=== PATIENT | female | born 1985 | race Two or more races ===

== ENCOUNTER 2017-10-12 11:00 | Observation (INO) | payer OTHER ==
[2017-10-12] MEDS ORDERED: HYDROmorphONE/DILAUDID 2 MG/ML INJ IVP ONE (11:34)
[2017-10-12] MEDS ORDERED: NS 1,000 ML IV ONE (11:34)
[2017-10-12] MEDS ORDERED: ONDANSETRON 4 MG/2 ML VIAL IVP ONE (11:34)
--- NOTE | 2017-10-12 11:36 | EDPHY ---
H & P Stated Complaint: ongoing left arm numbnesss and abdo pain radiating to lower back. Time Seen by Provider: 10/12/17 11:27 HPI/ROS: CHIEF COMPLAINT: Abdominal pain HISTORY OF PRESENT ILLNESS: Patient is a 32-year-old obese female who comes to the emergency department complaining of right side pain radiating to her back. She states that she has had problems with her gallbladder before but has not had surgery. She also has a history of chronic back pain. She vomited once today. Pain began last night. No fever. No difficulty breathing. No chest pain. She also complains of intermittent numbness to various parts for body. Sometimes to her left arm sometimes to her right leg and it seems to migrate around and be intermittent. REVIEW OF SYSTEMS: Constitutional: denies: chills, fever, recent illness, recent injury EENTM: denies: blurred vision, double vision, nose congestion Respiratory: denies: cough, shortness of breath Cardiac: denies: chest pain, irregular heart rate, lightheadedness, palpitations Gastrointestinal/Abdominal: See HPI Genitourinary: denies: dysuria, frequency, hematuria, pain Musculoskeletal: denies: joint pain, muscle pain Skin: denies: lesions, rash, jaundice, bruising Neurological: denies: headache, numbness, paresthesia, tingling, dizziness, weakness Hematologic/Lymphatic: denies: blood clots, easy bleeding, easy bruising Immunologic/allergic: denies: HIV/AIDS, transplant EXAM: GENERAL: Well-appearing, well-nourished and in no acute distress. HEAD: Atraumatic, normocephalic. EYES: Pupils equal round and reactive to light, extraocular movements intact, sclera anicteric, conjunctiva are normal. ENT: TMs normal, nares patent, oropharynx clear without exudates. Moist mucous membranes. NECK: Normal range of motion, supple without lymphadenopathy or JVD. LUNGS: Breath sounds clear to auscultation bilaterally and equal. No wheezes rales or rhonchi. HEART: Regular rate and rhythm without murmurs, rubs or gallops. ABDOMEN: Right upper quadrant pain and mild tenderness, and negative Cyr's, obese BACK: No CVA tenderness, no spinal tenderness, step-offs or deformities EXTREMITIES: Normal range of motion, no pitting or edema. No clubbing or cyanosis. NEUROLOGICAL: Cranial nerves II through XII grossly intact. Normal speech, normal gait. 5/5 strength, normal movement in all extremities, normal sensation no objective deficits. PSYCH: Normal mood, normal affect. SKIN: Warm, dry, normal turgor, no visible rashes or lesions. Source: Patient Exam Limitations: No limitations - Personal History LMP (Females 10-55): Irregular Current Tetanus Diphtheria and Acellular Pertussis (TDAP): Yes - Medical/Surgical History Hx Asthma: No Hx Chronic Respiratory Disease: No Hx Diabetes: No Hx Cardiac Disease: No Hx Renal Disease: No Hx Cirrhosis: No Hx Alcoholism: No Hx HIV/AIDS: No Hx Splenectomy or Spleen Trauma: No Other PMH: Denies - Family History Significant Family History: No pertinent family hx - Social History Smoking Status: Current every day smoker Alcohol Use: Sober Drug Use: None Constitutional: Initial Vital Signs Temperature (C) 36.9 C 10/12/17 11:03 Heart Rate 73 10/12/17 11:03 Respiratory Rate 18 10/12/17 11:03 Blood Pressure 142/90 H 10/12/17 11:03 O2 Sat (%) 98 10/12/17 11:03 O2 Delivery Mode Room Air Allergies/Adverse Reactions: No Known Allergies Allergy (Unverified 10/12/17 11:07) Home Medications: Medication Instructions Recorded Albuterol [Proventil Inhaler HFA 1 - 2 puffs IH DAILY PRN 10/12/17 (*)] Medical Decision Making - Diagnostics Imaging: Discussed imaging studies w/ call circuit worker Radiologist ED Course/Re-evaluation: 1:00 p.m. the patient is still having some discomfort. Her ultrasound shows a stone but no signs of cholecystitis obstruction however she does have an elevated white count. Will page surgery for consultation. 1:15 p.m. I discussed the case with Dr. Guan who will consult and likely operate. Differential Diagnosis: Partial list of the Differential diagnosis considered include but were not limited to; cholecystitis the cholelithiasis and although unlikely based on the history and physical exam, I also considered hepatitis, GERD, peptic ulcer disease, kidney start. - Data Points Laboratory Results: Laboratory Results 10/12/17 11:34 10/12/17 11:34 Medications Given: Acetaminophen (Tylenol) 1,000 mg PO Q8H IGGY Stop: 04/10/18 15:14 Last Admin: 10/12/17 23:32 Dose: 1,000 mg Hydromorphone HCl (Dilaudid) 0.2 - 0.4 mg IVP Q1H PRN PRN Reason: Pain, Severe Unable to Take PO Stop: 10/22/17 15:13 Last Admin: 10/13/17 06:15 Dose: 0.4 mg Lactated Ringer's (Lr) 1,000 mls @ 0 mls/hr IV CONT IGGY PRN Reason: Per Protocol Stop: 04/10/18 16:29 Last Admin: 10/12/17 16:44 Dose: 1,000 mls Ketorolac Tromethamine (Toradol) 30 mg IVP Q6 IGGY Stop: 10/17/17 17:59 Last Admin: 10/13/17 02:25 Dose: 30 mg Discontinued Medications Albumin Human (Alburx 5) Confirm Administered Dose 500 ml IV .STK-MED ONE Stop: 10/12/17 19:06 Last Admin: 10/12/17 20:29 Dose: Not Given Cefazolin Sodium (Ancef Syringe) Confirm Administered Dose 1 gm .ROUTE .STK-MED ONE Stop: 10/12/17 17:49 Last Admin: 10/12/17 19:30 Dose: 1 gm Cefazolin Sodium (Ancef) Confirm Administered Dose 1 gm .ROUTE .STK-MED ONE Stop: 10/12/17 18:35 Last Admin: 10/12/17 18:30 Dose: 1 gm Fentanyl (Sublimaze) 25 - 100 mcg IVP Q5M PRN PRN Reason: PACU, IMMEDIATE Pain control Stop: 10/12/17 20:21 Last Admin: 10/12/17 20:58 Dose: 50 mcg Heparin Sodium (Porcine) (Heparin Sc Injection) Confirm Administered Dose 5,000 unit .ROUTE .STK-MED ONE Stop: 10/12/17 17:49 Last Admin: 10/12/17 19:30 Dose: 5,000 unit Heparin Sodium (Porcine) (Heparin Sc Injection) Confirm Administered Dose 5,000 unit .ROUTE .STK-MED ONE Stop: 10/12/17 17:50 Last Admin: 10/12/17 19:30 Dose: 5,000 unit Hydromorphone HCl (Dilaudid) 1 mg IVP EDNOW ONE Stop: 10/12/17 11:35 Last Admin: 10/12/17 11:55 Dose: 1 mg Sodium Chloride (Ns) 1,000 mls @ 0 mls/hr IV EDNOW ONE; Wide Open PRN Reason: Protocol Stop: 10/12/17 11:35 Last Admin: 10/12/17 11:54 Dose: 1,000 mls Cefazolin Sodium/Dextrose (Ancef 1 Gm (Premix)) 50 mls @ 200 mls/hr IV EDNOW ONE PRN Reason: Protocol Stop: 10/12/17 13:26 Last Admin: 10/12/17 13:46 Dose: 50 mls Iothalamate Meglumine (Conray) Confirm Administered Dose 100 ml IV .STK-MED ONE Stop: 10/12/17 17:49 Last Admin: 10/12/17 20:30 Dose: Not Given Morphine Sulfate (Morphine) 1 - 4 mg IVP Q10M PRN PRN Reason: PACU, PAIN Stop: 10/12/17 20:21 Last Admin: 10/12/17 21:09 Dose: 2 mg Ondansetron HCl (Zofran) 4 mg IVP EDNOW ONE Stop: 10/12/17 11:35 Last Admin: 10/12/17 11:55 Dose: 4 mg Ondansetron HCl (Zofran) 2 - 4 mg IVP Q10M PRN PRN Reason: PACU, Nausea/Vomiting Stop: 10/12/17 20:21 Last Admin: 10/12/17 21:07 Dose: 4 mg Departure - Departure Disposition: [facility] Acute Clinical Impression: Cholelithiasis Qualifiers: Cholelithiasis location: gallbladder Cholecystitis presence: without cholecystitis Biliary obstruction: without biliary obstruction Qualified Code(s) : K80.20 - Calculus of gallbladder without cholecystitis without obstruction Condition: Fair
[2017-10-12 11:43] LABS: PLATELET COUNT 344 10^3/uL (150-400)
[2017-10-12] MEDS ORDERED: ONDANSETRON 4 MG/2 ML VIAL IVP PRN ×2 (15:14→19:21)
[2017-10-12] MEDS ORDERED: HYDROmorphone HCL/NS 0.5 MG/ML SYR IVP PRN (15:14)
[2017-10-12] MEDS ORDERED: NS 1,000 ML IV SCH (15:15)
[2017-10-12] MEDS ORDERED: ALBUTEROL 60 PUFFS/8 GM MDI IH PRN (15:20)
[2017-10-12] MEDS ORDERED: LR 1,000 ML IV SCH (16:30)
[2017-10-12] MEDS ORDERED: ONDANSETRON DISINTEGRATING 4 MG TAB PO PRN (17:11)
[2017-10-12] MEDS ORDERED: ALBUTEROL 3 ML DEYVIAL ONE (17:22)
[2017-10-12] MEDS ORDERED: ceFAZolin 1 GM/5 ML SYR ONE (17:48)
[2017-10-12] MEDS ORDERED: IOTHALAMATE MEG (CONRAY) 50 ML VIAL IV ONE (17:48)
[2017-10-12] MEDS ORDERED: HEPARIN 5,000 UNIT/0.5 ML SYR ONE ×2 (17:48→17:49)
--- NOTE | 2017-10-12 17:55 | GHP ---
[f rep st] PREOP HISTORY AND PHYSICAL DATE OF ADMISSION: 10/12/2017 HISTORY: The patient is a 32-year-old female. She has had a 10-year history of biliary colic. Her episodes usually last 30-45 minutes. She was seen last year at [facility] and was noted to have a stone. Today's event started at 6 a.m. and has continued as a colicky right-upper- quadrant pain that she could "not get away from" since that time. She was seen in the ER and a stone was seen in the neck of the gallbladder. Note, her liver functions are normal with an AST of 15, ALT of 21, alkaline phosphatase 79, and bilirubin of 0.3. Her lipase is 55. Her beta hCG is negative. Her white count is 13.5. Her percent neutrophils are 64%. I was asked to come see her for potential laparoscopic cholecystectomy. PAST MEDICAL HISTORY: She weighs 225 pounds and has been trying to lose weight , but unsuccessfully. She has smoked since age 17. Initially, it was a 2 pack a day rate. Currently, it is a quarter pack a day rate. She does not drink alcohol. She has no known drug allergies. She does not taking medications. In 2011, she had a left ACL which has left her somewhat limited in terms of her activity. Other surgeries include a tonsillectomy. There is no history of rheumatic fever, tuberculosis, hepatitis, or transfusions. REVIEW OF SYSTEMS: She has elevated triglycerides. As mentioned above, her activity is limited because of her left knee. She has not had steroids in the last 6 months. Review of systems otherwise quite negative. PHYSICAL EXAMINATION: GENERAL: She is awake and alert. Her skull is normocephalic and atraumatic. She is very pleasant and cooperative. NEUROLOGIC : Does not show any focal lateralizing findings. NECK: Unremarkable. There are no bruits. Thyroid is not enlarged. LYMPHATICS: There is no cervical, supraclavicular, axillary, or inguinal lymphadenopathy. BACK: Unremarkable. LUNGS: Clear to auscultation. CARDIAC: Shows S1, S2 normal. Normal split of S2 without murmurs, rubs, or gallops. ABDOMEN: Generous with very rare bowel sounds. She certainly has a positive Cyr sign at this point. IMPRESSION: Patient with acute on chronic cholecystitis with cholelithiasis. PLAN: I will plan a laparoscopic cholecystectomy. The patient understands the planned procedure and wishes to proceed as outlined. /[id number]/MODL MTDD
[2017-10-12] MEDS ORDERED: fentaNYL 100 MCG/2 ML INJ ONE ×3 (18:15→20:31)
[2017-10-12] MEDS ORDERED: PROPOFOL/EMULSION 500 MG/50 ML BOTTLE IV ONE (18:15)
[2017-10-12] MEDS ORDERED: MIDAZOLAM 2 MG/2 ML VIAL ONE (18:15)
[2017-10-12] MEDS: ACETAMINOPHEN 500 MG TAB PO SCH ×2 (18:31→23:32)
[2017-10-12] MEDS: KETOROLAC 30 MG/1 ML SDV IVP SCH (18:32)
[2017-10-12] MEDS ORDERED: ROCURONIUM 50 MG/5 ML VIAL ONE ×2 (18:34→18:47)
[2017-10-12] MEDS ORDERED: KETOROLAC 30 MG/1 ML SDV ONE (18:34)
[2017-10-12] MEDS ORDERED: RANITIDINE 50 MG/2 ML VIAL ONE (18:34)
[2017-10-12] MEDS ORDERED: METOCLOPRAMIDE 10 MG/2 ML VIAL ONE (18:34)
[2017-10-12] MEDS ORDERED: SUGAMMADEX SODIUM 200 MG/2 ML VIAL IVP ONE (18:34)
[2017-10-12] MEDS ORDERED: ceFAZolin 1 GM VIAL ONE (18:34)
[2017-10-12] MEDS ORDERED: LIDOCAINE 2% 5 ML SDV ONE (18:34)
[2017-10-12] MEDS ORDERED: ONDANSETRON 4 MG/2 ML VIAL ONE ×2 (18:34→21:06)
--- NOTE | 2017-10-12 18:43 | PDANEPAE ---
ANE Past Medical History - Pulmonary History Hx Oxygen in Use at Home: No Hx Sleep Apnea: No Sleep Apnea Screening Result - Last Documented: Positive - Endocrine History Hx Diabetes: No ANE Review of Systems Review of Systems: ANE Patient History - Allergies Allergies/Adverse Reactions: No Known Allergies Allergy (Unverified 10/12/17 11:07) - Home Medications Home Medications: Albuterol [Proventil Inhaler HFA (*)] 1 - 2 puffs IH DAILY PRN 10/12/17 [Last Taken Unknown] - NPO status NPO Since - Liquids (Date): 10/12/17 NPO Since - Liquids (Time): 08:00 NPO Since - Solids (Date): 10/12/17 NPO Since - Solids (Time): 06:15 - Smoking Hx Smoking Status: Current every day smoker - Alcohol Use Alcohol Use: Sober ANE Labs/Vital Signs - Labs Result Diagrams: 10/12/17 11:34 10/12/17 11:34 - Vital Signs Blood Pressure: 117/72 Heart Rate: 57 Respiratory Rate: 16 O2 Sat (%): 97 Height: 156.21 cm Weight: 102.058 kg ANE Physical Exam - Airway Neck exam: FROM, increased neck circumference, short neck Mallampati Score: Class 2 Mouth exam: normal dental/mouth exam - Pulmonary Pulmonary: no rales or rhonchi, clear to auscultation - Cardiovascular Cardiovascular: regular rate and rhythym, no murmur, rub, or gallop, tachycardia - ASA Status ASA Status: III, E ANE Anesthesia Plan Anesthesia Plan: general endotracheal anesthesia
[2017-10-12] MEDS ORDERED: ALBUMIN 5% 250 ML BOTTLE IV ONE (19:05)
[2017-10-12] MEDS ORDERED: CALCIUM CHLORIDE 1 GM/10 ML INJ ONE (19:20)
[2017-10-12] MEDS ORDERED: PHENYLEPHRINE HCL 100 MCG/ML SYR ONE (19:20)
[2017-10-12] MEDS ORDERED: MEPERIDINE 25 MG/ML SYR IVP PRN (19:21)
[2017-10-12] MEDS ORDERED: LR 500 ML IV PRN (19:21)
[2017-10-12] MEDS ORDERED: ALBUTEROL 3 ML DEYVIAL IH PRN (19:21)
[2017-10-12] MEDS ORDERED: NALOXONE HCL 0.4 MG/ML INJ IVP PRN (19:21)
[2017-10-12] MEDS ORDERED: DIAZEPAM 5 MG/ML 1 ML SYR IVP PRN (19:21)
[2017-10-12] MEDS ORDERED: METOCLOPRAMIDE 10 MG/2 ML VIAL IVP PRN (19:21)
[2017-10-12] MEDS ORDERED: DEXAMETHASONE 4 MG/ML VIAL IVP PRN (19:21)
[2017-10-12] MEDS ORDERED: ALBUTEROL HFA ANES ONLY 200 PUFFS/8.5 GM MDI IH ONE (19:44)
--- NOTE | 2017-10-12 20:25 | POSTOPPROG ---
Post Op Note Date of Operation: 10/12/17 Surgeon: Ghassan Guan Anesthesia: GET(General Endotracheal) Pre-op Diagnosis: Acute and chronic cholecystitis with cholelithiasis Post-op Diagnosis: Acute and chronic cholecystitis with cholelithiasis Indication: Acute and chronic cholecystitis with cholelithiasis Procedure: Laparoscopic cholecystectomy Findings: Acute and chronic cholecystitis with cholelithiasis Inf/Abcess present in the surg proc area at time of surgery?: No EBL: 500-1000 Total fluids administered: 750 crystalloid, 500 albumin Complications: Had bleeding from right hepatic artery Drains: Abdirahman Valderrama Specimen(s): Gall bladder
[2017-10-12] MEDS: fentaNYL 100 MCG/2 ML INJ IVP PRN ×3 (20:33→20:58)
--- NOTE | 2017-10-13 01:02 | GOP ---
[f rep st] OPERATIVE REPORT DATE OF OPERATION: 10/12/2017 SURGEON: Ghassan Guan MD ANESTHESIA: General endotracheal. PREOPERATIVE DIAGNOSIS: Acute and chronic cholecystitis with cholelithiasis. POSTOPERATIVE DIAGNOSIS: Acute and chronic cholecystitis with cholelithiasis. PROCEDURE PERFORMED: Laparoscopic cholecystectomy. FINDINGS: Acute and chronic cholecystitis with cholelithiasis. ESTIMATED BLOOD LOSS: Approximately 1000 cc. INDICATIONS: Acute and chronic cholecystitis with cholelithiasis. DESCRIPTION OF PROCEDURE: The patient is placed on the operating table in supine position. After induction of adequate general endotracheal anesthesia, the abdomen was carefully prepped and draped. An orogastric tube was subsequently passed. A surgical time-out was carried out and agreed to by all members of the operative team. A curvilinear incision was made in the infraumbilical site. Dissection continued down to the anterior rectus sheath, which was elevated between Allis clamps and divided in the midline. Pursestring of #0 PDS was placed. The peritoneum was entered. An 11 and 11/12 disposable Joseph trocars were positioned. Intra-abdominal insufflation was carried out to 15 mmHg. She was placed in the reverse Trendelenburg position and rotated 5 degrees to the left. A 5 mm port was placed in the epigastrium. Two right upper quadrant 5 mm ports were also placed. There were adhesions of the omentum to the liver but not to the gallbladder. The gallbladder was elevated with 1 grasper at its fundus and 1 to the infundibulum. Careful dissection revealed the cystic duct, which is approximately 2 mm in diameter. It was cleared circumferentially, triply clipped on the patient's side, singly clipped on the gallbladder side, and it was divided. The peritoneum over Calot's triangle was carefully elevated and divided. Cystic artery was identified. It is doubly clipped on the patient's side, singly clipped on the gallbladder side, and divided. This resulted in prompt bleeding. I presume that a branch of the right hepatic artery was just posterior to the cystic artery and was partially injured. Careful dissection was carried out. I was finally able to clip the vessels. Note is made at the end of the case, the vessel was secured with an Endoloop as well. The gallbladder was removed from its fossa using a combination of Harmonic and cautery dissection. It was placed in EndoCatch bag and delivered via the umbilical port site. Pneumoperitoneum was re-established. Extensive irrigation was carried out to remove blood and blood products. In sum total, approximately 1000 cc was lost with the branch of the right hepatic arterial injury. As mentioned above, Endoloop was placed on the proximal right hepatic branch. Note is made, inspection shows the cystic duct to be a good distance from where the clips were placed. I do not feel there was a cystic duct injury. A 10 flat VELIA is nonetheless placed in the biliary fossa to serve as indicated. It was led out through the lateral right upper quadrant port site. It was secured with a 3-0 silk suture at the skin level. It was connected to bulb suction. The other ports were removed under direct vision. The umbilical port was removed. Inverted simple suture of #0 PDS was placed in the midpoint of the infraumbilical midline incision in the fascia and tied. The pursestring is now tied. Subcutaneous irrigation is carried out. Hemostasis was excellent. All 3 incisions were now closed with inverted simple sutures of #4-0 Vicryl. Mastisol and Steri-Strips were placed. Gauze was placed around the VELIA drain and secured with tape. Mastisol and Steri-Strips were applied to the site and Band-Aids are positioned. Solano catheter was placed. The patient was transferred to recovery in stable and satisfactory condition. FLUIDS ADMINISTERED: 250 of crystalloid, 500 of albumin. COMPLICATIONS: During the course of the dissection, the cystic artery was transected and apparently a branch of the right hepatic. Blood was lost into the abdominal cavity. Hemostasis was achieved. Irrigation with heparin and Ancef-containing irrigant was undertaken. A Abdirahman-Valderrama drain was placed in the biliary fossa. /[id number]/MODL MTDD
[2017-10-13] MEDS: KETOROLAC 30 MG/1 ML SDV IVP SCH ×2 (02:25→08:41)
[2017-10-13] MEDS: HYDROmorphONE/DILAUDID 2 MG/ML INJ IVP PRN ×3 (03:51→08:42)
[2017-10-13 06:17] LABS: PLATELET COUNT 286 10^3/uL (150-400)
[2017-10-13 08:32] VITALS: BP 113/64
[2017-10-13] MEDS: ACETAMINOPHEN 500 MG TAB PO SCH (08:40)
--- NOTE | 2017-10-13 08:48 | POSTANESTH ---
Post Anesthetic Evaluation Cardiovascular Status: Normal, Stable, Other, See Comment Respiratory Status: Normal, Stable, Similar to Pre-op Cond. Level of Consciousness/Mental Status: Mildly Sleepy, Arousable Pain Control: Adequate, Prn Tx Ordered Nausea/Vomiting Control: Adequate, Prn Tx Ordered Complications Possibly Related to Anesthesia: None Noted Notes: Patient had acute bleeding intraop from hepatic artery, with transitory hemodinamic instability during the episode, BP returned to normal after the bleeding was controlled. Normal BP and vital signs in PACU
[2017-10-13] MEDS ORDERED: ENOXAPARIN 30 MG/0.3 ML SYR SC SCH (09:00)
[2017-10-13] MEDS ORDERED: NICOTINE 14 MG/24 HR PATCH TD SCH (10:30)
[2017-10-13] MEDS: HYDROCODONE/APAP 5/325 TAB PO PRN ×2 (11:34→14:51)
[2017-10-13] MEDS ORDERED: PNEUMOCOCCAL 0.5ML VACCINE VIAL IM ONE (11:40)
--- NOTE | 2017-10-13 13:02 | SOAPPROG ---
SOAP Progress Note Assessment/Plan: Assessment/Plan: 32 Y F s/p lap steven. Nicotine patch. Patient very motivated for smoking cessation. Dietary consult. Patient very motivated to lose weight/get healthy. Advance diet. Continue drain. Dispo: pending. If tolerates diet, consider d/c later today, but likely tomorrow. Plan to remove drain before d/c. S: pain controlled. drinking broth for the first time. no n/v. O: alert, nad no wob, rrr abd soft, +BS, inc cdi, drain serosanguinous, nonbilious 10/13/17 12:59 Objective: Vital Signs Temp Pulse Resp BP Pulse Ox 36.9 C 75 17 113/64 95 10/13/17 08:15 10/13/17 08:15 10/13/17 08:15 10/13/17 08:15 10/13/17 08:15 Laboratory Results 10/13/17 06:10 10/13/17 06:10 10/12/17 10/13/17 10/14/17 05:59 05:59 05:59 Intake Total 0140 Output Total 7785 573 Balance 355 -670 ICD10 Worksheet Patient Problems: Problems Problem Status Onset Cholelithiasis Acute
== END 2017-10-13 15:30 | disposition home or self-care (01) ==
LOC: FOB 14:55
PROVIDERS: ADMIT Surgery; ATTEND Surgery
PROC: 0FT44ZZ Resection of Gallbladder, Percutaneous Endoscopic Approach (ICD-10-PCS; principal; 2017-10-12 17:00)
DX: K80.10 Calculus of gallbladder with chronic cholecystitis without obstruction (principal); F17.200 Nicotine dependence, unspecified, uncomplicated
CPT/HCPCS: 47562; 76705; 90471; G0378; 96374; G0009; J0690; J1170; J1644; J1650; J1885; J2250; J2270; J2370; J2405; J2704; J2765; J2780; J3010; J7613; P9041; Q9961